=== PATIENT | male | born 1950 | race Caucasian/White ===

== ENCOUNTER 2021-04-22 10:03 | Day surgery (SDC) | payer OTHER ==
[~2021-04-22] VITALS: Ht 177.8 cm; Wt 90.9 kg
[2021-04-22 09:50] VITALS: BP 130/94
[2021-04-22] MEDS ORDERED: ATOR10TA70 PO (10:23)
[2021-04-22] MEDS ORDERED: METO-395 PO (10:23)
[2021-04-22] MEDS ORDERED: APIX5TAB3 PO (10:23)
[2021-04-22] MEDS ORDERED: LISI20TA28 PO (10:23)
[2021-04-22 10:50] VITALS: BP 130/94
[2021-04-22 11:00] VITALS: BP 152/91
== END 2021-04-22 11:05 | disposition home or self-care (01) ==
LOC: GI LAB 10:03
PROVIDERS: ATTEND Internal Medicine Gastroenterology
DX: R19.5 Other fecal abnormalities (principal); K63.5 Polyp of colon; K57.30 Diverticulosis of large intestine without perforation or abscess without bleeding; K64.8 Other hemorrhoids; I48.91 Unspecified atrial fibrillation; I10 Essential (primary) hypertension; Z72.89 Other problems related to lifestyle; Z79.899 Other long term (current) drug therapy
CPT/HCPCS: 45385; C1773; J7040; Z7512; 99152; 99153; A4620; G0500